=== PATIENT | female | born 1980 ===

== ENCOUNTER 2016-12-31 17:45 | Inpatient (IN) | payer OTHER, SELFPAY ==
[2016-12-31 17:45] VITALS: BMI 28.9
[2016-12-31] MEDS ORDERED: Sodium Chloride 0.9% 1,000 ML IV STA (17:58)
[2016-12-31 18:36] LABS: VENOUS BLOOD GAS BASE EXCESS 1.3 mmol/L (0.0-2.0); VENOUS BLOOD GAS PCO2 40 mmHg (40-60); VENOUS BLOOD PH 7.42 (7.32-7.43)
[2016-12-31 18:42] LABS: BASO % 0.3 % (0.0-2.0); EOS % 0.3 % (0.0-4.0); HEMATOCRIT 31.6 % (34.0-47.0); LYMPH # 0.5 K/uL (1.0-4.3); MEAN CELL VOLUME 71.6 fl (81.0-99.0); MEAN CORPUSCULAR HGB CONC 32.1 g/dL (33.0-37.0); MEAN PLATELET VOLUME 8.6 fl (7.2-11.7); MONO # 0.2 K/uL (0.0-0.8); MONO % 2.9 % (0.0-10.0); NEUT % 89.5 % (50.0-75.0); NRBC % 0.1 % (0.0-0.0); PLATELET COUNT 180 K/uL (130-400); RED CELL DISTRIBUTION WIDTH 17.3 % (11.5-14.5); WHITE BLOOD COUNT 7.8 K/uL (4.8-10.8)
[2016-12-31 18:42] LABS: RBC URINE 48 /hpf (0-3); URINE BILIRUBIN NEGATIVE (NEGATIVE); URINE BLOOD MODERATE (NEGATIVE); URINE COLOR YELLOW (YELLOW); URINE GLUCOSE (UA) NEG (Normal); URINE KETONE NEGATIVE (NEGATIVE); URINE LEUKOCYTE ESTERASE LARGE Leu/uL (Negative); URINE PROTEIN 100 mg/dL (NEGATIVE); WBC URINE 162 /hpf (0-5)
[2016-12-31 18:45] LABS: URINE BACTERIA MOD (<OCC)
--- NOTE | 2016-12-31 18:46 | ED PDOC ---
HPI: Back Time Seen by Provider: 12/31/16 17:57 Chief Complaint (Nursing): Back Pain Chief Complaint (Provider): Back Pain History Per: Patient History/Exam Limitations: no limitations Onset/Duration Of Symptoms: Days (x2) Current Symptoms Are (Timing): Still Present Additional Complaint(s): Calista Lagunas is a 36 year old female who presents to the emergency department with a complaint of constant and worsening left-sided back pain radiating to left leg associated with fever, loss of appetite, pelvic pain, yellow vaginal discharge, urine frequency and nausea ongoing for 2 days. Denied dysuria, hematuria, diarrhea or constipation. Patient stated her fever began yesterday and took Tylenol last at 1300 today. PMD: none provided Past Medical History Reviewed: Historical Data, Nursing Documentation, Vital Signs Vital Signs: Last Vital Signs Temp 102.2 F H 12/31/16 17:48 Pulse 112 H 12/31/16 17:48 Resp 16 12/31/16 17:48 BP 139/76 12/31/16 17:48 Pulse Ox 100 12/31/16 17:48 - Medical History PMH: Anemia - Family History Family History: States: Unknown Family Hx - Social History Current smoker - smoking cessation education provided: No Alcohol: None Drugs: Denies - Allergies Allergies/Adverse Reactions: Allergies Allergy/AdvReac Type Severity Reaction Status Date / Time No Known Allergies Allergy Verified 12/31/16 17:48 Review of Systems ROS Statement: Except As Marked, All Systems Reviewed And Found Negative Constitutional: Positive for: Fever Gastrointestinal: Positive for: Nausea, Other (loss of appetite). Negative for : Diarrhea, Constipation Genitourinary Female: Positive for: Frequency, Vaginal Discharge (yellow), Pelvic Pain. Negative for: Dysuria, Hematuria Musculoskeletal: Positive for: Back Pain (left-sided), Leg Pain (left) Physical Exam - Reviewed Nursing Documentation Reviewed: Yes Vital Signs Reviewed: Yes - Physical Exam Appears: Positive for: Uncomfortable, In Acute Distress Head Exam: Positive for: ATRAUMATIC, NORMOCEPHALIC Skin: Positive for: Warm, Dry Eye Exam: Positive for: EOMI, PERRL ENT: Negative for: Pharyngeal Erythema, Tonsillar Exudate Neck: Positive for: Painless ROM, Supple Cardiovascular/Chest: Positive for: Chest Non Tender, Tachycardia Respiratory: Positive for: Normal Breath Sounds. Negative for: Wheezing, Respiratory Distress Gastrointestinal/Abdominal: Positive for: Soft, Tenderness (suprapubic). Negative for: Mass, Distended, Guarding, Rebound Pelvic Exam: Positive for: External Exam Normal, Speculum Exam Normal, Tender Uterus. Negative for: Discharge Back: Positive for: L CVA Tenderness. Negative for: R CVA Tenderness, Vertebral Tenderness, Decreased ROM Extremity: Positive for: Normal ROM. Negative for: Pedal Edema, Deformity Lymphatic: Negative for: Adenopathy Neurologic/Psych: Positive for: Alert. Negative for: Motor/Sensory Deficits - Laboratory Results Result Diagrams: 12/31/16 18:20 12/31/16 18:25 - ECG O2 Sat by Pulse Oximetry: 100 (RA) Pulse Ox Interpretation: Normal Medical Decision Making Medical Decision Making: Initial Impression: Febrile illness; left flank pain Differential diagnosis: Pyelonephritis; pelvic inflammatory disease; sepsis; colitis Initial Plan: * VBG * CT ABD/pelvis without contrast * BNP * CMP * Magnesium * Phosphorous * Troponin I * Urine dipstick * Urine * CBC * ESR * PTT * PT * Chlamydia/GC * Tylenol 975mg PO * Toradol 15mg IV * NS 1,000ml IV per 2,000mls/hr * Blood culture * Genital culture * Urine culture * Urinalysis Time: 1819 --UA: large amount of blood and small leukocytes noted. Protein: 100. Negative for . Time: 2100 --CT ABD/pelvis FINDINGS: LIMITATIONS: Mild streak/motion artifact. LOWER THORAX: Dense septum sign noted in the heart, a finding which can be seen with anemia. ABDOMEN: LIVER: No acute abnormality of the liver identified. GALLBLADDER AND BILE DUCTS: No CT evidence of acute cholecystitis. No evidence of significant biliary ductal dilatation. PANCREAS: No CT evidence of acute pancreatitis. SPLEEN: No acute abnormality of the spleen identified. ADRENALS: No acute abnormality of the adrenal glands identified. KIDNEYS AND URETERS: Mild left hydroureteronephrosis, urothelial thickening, and perinephric stranding. No causative obstructing stone is seen. Tiny, nonobstructing left renal stones. No acute abnormality of the right kidney identified. STOMACH AND BOWEL: No acute abnormality of the stomach, small bowel or colon identified. No evidence of bowel obstruction. APPENDIX: Normal appendix is not seen, however, there are no significant inflammatory changes visualized in the expected location of the appendix to suggest appendicitis. Recommend clinical correlation. PELVIS: BLADDER: Mild thickening of the bladder wall. REPRODUCTIVE:No acute abnormality of the reproductive organs is seen. No acute abnormality of the uterus identified. No evidence of large adnexal masses. ABDOMEN and PELVIS: INTRAPERITONEAL SPACE: Small amount of free fluid in the cul-de-sac. This is most likely physiologic in nature. No evidence of free air. BONES/JOINTS: No acute fractures or other acute bony abnormality noted. SOFT TISSUES: No acute abnormality of the visualized soft tissues is seen. VASCULATURE: Prominent vessels are seen the posterior pelvis, in the presacral region, which appear to drain into iliac spine laterally. Findings suggest collateral vessel formation, secondary to some type of underlying chronic venous occlusion more proximally. The IVC appears normal in size on this unenhanced exam. No evidence of abdominal aortic aneurysm. LYMPH NODES: No evidence of diffuse lymphadenopathy. IMPRESSION: - Mild left hydroureteronephrosis, urothelial thickening, and perinephric stranding. No causative obstructing stone is seen. Findings could be due to a recently passed stone. A left-sided urinary tract infection could also have this appearance. Recommend clinical correlation. - Mild bladder wall thickening. This is a nonspecific finding, but can be seen with cystitis. Recommend clinical correlation. - Tiny nonobstructing left renal stones. - Findings which can be seen with anemia. Recommend clinical correlation. - See above for remaining findings. On reeval pt continues to have pain LEFT flank. DW pt findings and plan of care. Elevated HR and temp c/w sepsis, but pt with normal lactic acid so not in septic shock. Pt needs hospitalization to continue observation of improvement or worsening sepsis on IV antibiotics. Scribe Attestation: Documented by Jackie Guerin, acting as a scribe for Anita Wang MD. Provider Scribe Attestation: All medical record entries made by the Scribe were at my direction and personally dictated by me. I have reviewed the chart and agree that the record accurately reflects my personal performance of the history, physical exam, medical decision making, and the department course for this patient. I have also personally directed, reviewed, and agree with the discharge instructions and disposition. Disposition - Clinical Impression Clinical Impression: Pyelonephritis, Sepsis Discussed With : Monster Wiley Counseled Patient/Family Regarding: Studies Performed, Diagnosis - Disposition Disposition Time: 21:00 Condition: GUARDED - Pt Status Changed To: Hospital Disposition Of: Observation - POA Present On Arrival: None
[2016-12-31 18:58] LABS: PARTIAL THROMBOPLASTIN TIME 31.8 Seconds (25.6-37.1)
[2016-12-31 19:11] LABS: ALB/GLOB RATIO 1.3 (1.0-2.1); ALKALINE PHOSPHATASE 150 U/L (38-126); ALT/SGPT 99 U/L (9-52); AST/SGOT 183 U/L (14-36); BILIRUBIN,TOTAL 1.8 mg/dl (0.2-1.3); BLOOD UREA NITROGEN 8 mg/dl (7-17); CALCIUM 8.7 mg/dL (8.4-10.2); CARBON DIOXIDE 23 mmol/L (22-30); CHLORIDE 100 mmol/L (98-107); GFR AFRICAN-AMERICAN > 60; GLUCOSE,RANDOM 114 mg/dL (65-105); MAGNESIUM 1.8 MG/DL (1.6-2.3); PHOSPHOROUS 2.4 mg/dl (2.5-4.5); SODIUM 135 mmol/l (132-148); TOTAL PROTEIN 7.6 G/DL (6.3-8.2)
[2016-12-31] MEDS ORDERED: cefTRIAXone (Rocephin) 1 gm Inj ONE (19:12)
[2016-12-31 19:18] LABS: POTASSIUM 3.2 MMOL/L (3.6-5.0)
[2016-12-31] MEDS ORDERED: K-Lyte 25meq EF Tab PO ONE ×2 (19:25→19:57)
[2016-12-31 19:38] LABS: NEUTROPHIL 89 % (42-75); TOTAL CELLS COUNTED 100
--- NOTE | 2016-12-31 21:01 | CT ---
EXAM: CT Abdomen and Pelvis Without Intravenous Contrast EXAM DATE/TIME: 12/31/2016 6:26 PM CLINICAL HISTORY: 36 years old, female; Pain; Abdominal pain; Localized; Left; Additional info: Left flank pain TECHNIQUE: Axial computed tomography images of the abdomen and pelvis without intravenous contrast. All CT scans at this facility use one or more dose reduction techniques, viz.: automated exposure control; ma/kV adjustment per patient size (including targeted exams where dose is matched to indication; i.e. head); or iterative reconstruction technique. Coronal and sagittal reformatted images were created and reviewed. COMPARISON: No relevant prior studies available. FINDINGS: LIMITATIONS: Mild streak/motion artifact. LOWER THORAX: Dense septum sign noted in the heart, a finding which can be seen with anemia. ABDOMEN: LIVER: No acute abnormality of the liver identified. GALLBLADDER AND BILE DUCTS: No CT evidence of acute cholecystitis. No evidence of significant biliary ductal dilatation. PANCREAS: No CT evidence of acute pancreatitis. SPLEEN: No acute abnormality of the spleen identified. ADRENALS: No acute abnormality of the adrenal glands identified. KIDNEYS AND URETERS: Mild left hydroureteronephrosis, urothelial thickening, and perinephric stranding. No causative obstructing stone is seen. Tiny, nonobstructing left renal stones. No acute abnormality of the right kidney identified. STOMACH AND BOWEL: No acute abnormality of the stomach, small bowel or colon identified. No evidence of bowel obstruction. APPENDIX: Normal appendix is not seen, however, there are no significant inflammatory changes visualized in the expected location of the appendix to suggest appendicitis. Recommend clinical correlation. PELVIS: BLADDER: Mild thickening of the bladder wall. REPRODUCTIVE:No acute abnormality of the reproductive organs is seen. No acute abnormality of the uterus identified. No evidence of large adnexal masses. ABDOMEN and PELVIS: INTRAPERITONEAL SPACE: Small amount of free fluid in the cul-de-sac. This is most likely physiologic in nature. No evidence of free air. BONES/JOINTS: No acute fractures or other acute bony abnormality noted. SOFT TISSUES: No acute abnormality of the visualized soft tissues is seen. VASCULATURE: Prominent vessels are seen the posterior pelvis, in the presacral region, which appear to drain into iliac spine laterally. Findings suggest collateral vessel formation, secondary to some type of underlying chronic venous occlusion more proximally. The IVC appears normal in size on this unenhanced exam. No evidence of abdominal aortic aneurysm. LYMPH NODES: No evidence of diffuse lymphadenopathy. IMPRESSION: - Mild left hydroureteronephrosis, urothelial thickening, and perinephric stranding. No causative obstructing stone is seen. Findings could be due to a recently passed stone. A left-sided urinary tract infection could also have this appearance. Recommend clinical correlation. - Mild bladder wall thickening. This is a nonspecific finding, but can be seen with cystitis. Recommend clinical correlation. - Tiny nonobstructing left renal stones. - Findings which can be seen with anemia. Recommend clinical correlation. - See above for remaining findings.
[2016-12-31 21:26] LABS: ERYTHROCYTE SEDIMENTATION RATE 35 mm/hr (0-20)
--- NOTE | 2016-12-31 21:56 | CP.PCM.HP ---
History of Present Illness - History of Present Illness History of Present Illness: CC: Back pain L>R History largely via ; is largely Lao speaking. HPI: This is a 36 y/o female with no chronic problems who comes in with worsening L sided back/flank pain. Pain radiates to L leg and is associated with f/n/v/anorexia. She has also had some pelvic pain/discharge. She has had urinary frequency. Symptoms have been ongoing for 2+ days. Denies dysuria or hematuria. Tylenol has helped with some of her symptoms. ROS: 14 systems reviewed, negative other than HPI MHx: Anemia SHx: C section in the past Allergies: NKDA Medications: as per med rec Family Hx: reviewed, no relevant findings Social Hx: Lives with family, no significant EtOH or tobacco Present on Admission - Present on Admission Any Indicators Present on Admission: No Past Patient History - Past Social History Alcohol: None Drugs: Denies - HEMATOLOGICAL/ONCOLOGICAL Hx Anemia: Yes - PSYCHIATRIC Hx Substance Use: No - SURGICAL HISTORY Hx Tubal Ligation: Yes (tubectomy) Meds Allergies/Adverse Reactions: Allergies Allergy/AdvReac Type Severity Reaction Status Date / Time No Known Allergies Allergy Verified 12/31/16 17:48 Physical Exam - Constitutional Appears: No Acute Distress - Head Exam Head Exam: ATRAUMATIC, NORMOCEPHALIC - Eye Exam Eye Exam: EOMI, PERRL - ENT Exam ENT Exam: Mucous Membranes Dry - Neck Exam Neck exam: Positive for: Full Rom - Respiratory Exam Respiratory Exam: Clear to Auscultation Bilateral, NORMAL BREATHING PATTERN - Cardiovascular Exam Cardiovascular Exam: REGULAR RHYTHM, +S1, +S2 - GI/Abdominal Exam GI & Abdominal Exam: Normal Bowel Sounds, Soft, Tenderness - Extremities Exam Extremities exam: Positive for: full ROM, normal inspection, pedal edema - Neurological Exam Neurological exam: Alert, CN II-XII Intact, Oriented x3 - Psychiatric Exam Psychiatric exam: Normal Affect, Normal Mood - Skin Skin Exam: Dry, Warm Results - Vital Signs Recent Vital Signs: Last Vital Signs Temp 102.2 F H 12/31/16 17:48 Pulse 112 H 12/31/16 17:48 Resp 16 12/31/16 17:48 BP 139/76 12/31/16 17:48 Pulse Ox 100 12/31/16 21:38 - Labs Result Diagrams: 12/31/16 18:20 12/31/16 18:25 Labs: Laboratory Results - last 24 hr 12/31/16 12/31/16 12/31/16 18:20 18:25 18:25 WBC 7.8 RBC 4.41 Hgb 10.2 L Hct 31.6 L MCV 71.6 L D MCH 23.0 L MCHC 32.1 L RDW 17.3 H Plt Count 180 MPV 8.6 Neut % (Auto) 89.5 H Lymph % (Auto) 7.0 L [place] % (Auto) 2.9 Eos % (Auto) 0.3 Baso % (Auto) 0.3 Neut # 7.0 Lymph # 0.5 L [place] # 0.2 Eos # 0.0 Baso # 0.0 Neutrophils % (Manual) 89 H Band Neutrophils % 3 H Lymphocytes % (Manual) 5 L Monocytes % (Manual) 3 Platelet Estimate Normal Hypochromasia (manual) Moderate Poikilocytosis (manual Slight Anisocytosis (manual) Moderate Microcytosis (manual) Moderate ESR 35 H PT 13.4 H INR 1.3 H APTT 31.8 pO2 VBG pH VBG pCO2 VBG HCO3 VBG Total CO2 VBG O2 Sat (Calc) VBG Base Excess VBG Potassium Glucose Lactate FiO2 Sodium 135 Potassium 3.2 L Chloride 100 Carbon Dioxide 23 Anion Gap 15 BUN 8 Creatinine 0.5 L Est GFR ( Amer) > 60 Est GFR (Non-Af Amer) > 60 Random Glucose 114 H Calcium 8.7 Phosphorus 2.4 L Magnesium 1.8 Total Bilirubin 1.8 H AST 183 H ALT 99 H Alkaline Phosphatase 150 H Troponin I < 0.0120 NT-Pro-B Natriuret Pep 87.0 Total Protein 7.6 Albumin 4.3 Globulin 3.3 Albumin/Globulin Ratio 1.3 Venous Blood Potassium Urine Color Urine Clarity Urine pH Ur Specific [place] Urine Protein Urine Glucose (UA) Urine Ketones Urine Blood Urine Nitrate Urine Bilirubin Urine Urobilinogen Ur Leukocyte Esterase Urine RBC (Auto) Urine Microscopic WBC Ur Squamous Epith Cells Urine Bacteria Urine Yeast (Budding) 12/31/16 12/31/16 18:26 18:33 WBC RBC Hgb Hct MCV MCH MCHC RDW Plt Count MPV Neut % (Auto) Lymph % (Auto) [place] % (Auto) Eos % (Auto) Baso % (Auto) Neut # Lymph # [place] # Eos # Baso # Neutrophils % (Manual) Band Neutrophils % Lymphocytes % (Manual) Monocytes % (Manual) Platelet Estimate Hypochromasia (manual) Poikilocytosis (manual Anisocytosis (manual) Microcytosis (manual) ESR PT INR APTT pO2 22 L VBG pH 7.42 VBG pCO2 40 VBG HCO3 24.3 VBG Total CO2 27.1 VBG O2 Sat (Calc) 59.4 VBG Base Excess 1.3 VBG Potassium 3.0 L Glucose 123 H Lactate 1.9 FiO2 21.0 Sodium 135.0 Potassium Chloride 104.0 Carbon Dioxide Anion Gap BUN Creatinine Est GFR ( Amer) Est GFR (Non-Af Amer) Random Glucose Calcium Phosphorus Magnesium Total Bilirubin AST ALT Alkaline Phosphatase Troponin I NT-Pro-B Natriuret Pep Total Protein Albumin Globulin Albumin/Globulin Ratio Venous Blood Potassium 3.0 L Urine Color Yellow Urine Clarity Cloudy Urine pH 7.0 Ur Specific [place] 1.014 Urine Protein 100 Urine Glucose (UA) Neg Urine Ketones Negative Urine Blood Moderate Urine Nitrate Negative Urine Bilirubin Negative Urine Urobilinogen 2.0 H Ur Leukocyte Esterase Large Urine RBC (Auto) 48 H Urine Microscopic WBC 162 H Ur Squamous Epith Cells 11 H Urine Bacteria Mod H Urine Yeast (Budding) Few H - Imaging and Cardiology CT scan - abdomen Status: Image reviewed by me (Perinephric stranding, ?hydronephrouterer on L), Report reviewed by me Assessment & Plan (1) Pyelonephritis Assessment and Plan: 36 y/o female with pyelonephritis and mild hypo-K. -Admit obs -Continue ceftriaxone IV -IVF -Tylenol for fever; pain mgmt per scale -SCDs for DVT PPx Status: Acute (2) DVT prophylaxis Status: Acute
[2016-12-31 22:05] LABS: VENOUS BLOOD GAS BASE EXCESS 0.6 mmol/L (0.0-2.0); VENOUS BLOOD GAS PCO2 36 mmHg (40-60); VENOUS BLOOD PH 7.44 (7.32-7.43)
[2016-12-31] MEDS: Sodium Chloride 0.9% 1,000 ML IV SCH (23:10)
[2017-01-01 08:38] LABS: HEMATOCRIT 28.3 % (34.0-47.0); MEAN CELL VOLUME 72.3 fl (81.0-99.0); MEAN CORPUSCULAR HEMOGLOBIN 22.8 pg (27.0-31.0); MEAN CORPUSCULAR HGB CONC 31.5 g/dL (33.0-37.0); RED CELL DISTRIBUTION WIDTH 17.4 % (11.5-14.5); WHITE BLOOD COUNT 8.5 K/uL (4.8-10.8)
--- NOTE | 2017-01-01 09:45 | CP.PCM.PN ---
Subjective - Date & Time of Evaluation Date of Evaluation: 01/01/17 Time of Evaluation: 15:00 - Subjective Subjective: Patient seen and examined bedside.Still complains of feeling weak with left side flank pain, febrile. Tmax 103.2 WBC 8.5 Hgb 8.9 Blood Cx positive for gram negative samantha Objective - Vital Signs/Intake and Output Vital Signs (last 24 hours): Temp Pulse Resp BP Pulse Ox 100.4 F H 109 H 18 99/55 L 98 01/01/17 07:28 01/01/17 07:28 01/01/17 07:28 01/01/17 07:28 01/01/17 07:28 - Medications Medications: Current Medications Acetaminophen (Tylenol 325mg Tab) 975 mg PO ONCE PRN PRN Reason: Fever >100.4 F Last Admin: 01/01/17 06:08 Dose: 975 mg Acetaminophen (Tylenol 325mg Tab) 650 mg PO Q6 PRN PRN Reason: Pain, Mild (1-3) Acetaminophen (Tylenol 325mg Tab) 650 mg PO Q6 PRN PRN Reason: Fever >100.4 F Sodium Chloride (Sodium Chloride 0.9%) 1,000 mls @ 100 mls/hr IV .Q10H GABY Stop: 01/01/17 17:44 Last Admin: 12/31/16 23:10 Dose: 100 mls/hr Ceftriaxone Sodium 1 gm/ (Sodium Chloride) 100 mls @ 100 mls/hr IVPB Q12 GABY Ketorolac Tromethamine (Toradol) 30 mg IVP Q6 PRN PRN Reason: Pain, moderate (4-7) Last Admin: 01/01/17 00:47 Dose: 30 mg Ondansetron HCl (Zofran Inj) 4 mg IVP Q6 PRN PRN Reason: Nausea/Vomiting - Labs Labs: 01/01/17 07:30 PT 13.4 Seconds (9.8-13.1) H 12/31/16 18:25 INR 1.3 (0.9-1.2) H 12/31/16 18:25 APTT 31.8 Seconds (25.6-37.1) 12/31/16 18:25 - Constitutional Appears: Well, Non-toxic, No Acute Distress - Head Exam Head Exam: ATRAUMATIC, NORMAL INSPECTION, NORMOCEPHALIC - Eye Exam Eye Exam: EOMI, Normal appearance, PERRL Pupil Exam: NORMAL ACCOMODATION - ENT Exam ENT Exam: Mucous Membranes Moist, Normal Exam - Neck Exam Neck Exam: Full ROM, Normal Inspection - Respiratory Exam Respiratory Exam: Clear to Ausculation Bilateral, NORMAL BREATHING PATTERN. absent: Rales, Rhonchi, Wheezes - Cardiovascular Exam Cardiovascular Exam: REGULAR RHYTHM, RRR, +S1, +S2. absent: JVD - GI/Abdominal Exam GI & Abdominal Exam: Soft, Normal Bowel Sounds. absent: Distended, Guarding, Tenderness, Rebound - Rectal Exam Rectal Exam: Deferred - Extremities Exam Extremities Exam: Full ROM, Normal Capillary Refill, Normal Inspection. absent : Calf Tenderness, Pedal Edema - Back Exam Back Exam: NORMAL INSPECTION - Neurological Exam Neurological Exam: Alert, Awake, CN II-XII Intact, Oriented x3 - Psychiatric Exam Psychiatric exam: Normal Affect, Normal Mood - Skin Skin Exam: Dry, Intact, Normal Color, Warm Assessment and Plan - Assessment and Plan (Free Text) Assessment: 36 y/o female with no chronic problems who comes in with worsening L sided back/ flank pain. Pain radiates to L leg and is associated with f/n/v/anorexia. She has also had some pelvic pain/discharge. She has had urinary frequency. Symptoms have been ongoing for 2+ days. Denies dysuria or hematuria. Patient febrile Tmax 103 with dirty cloudy urine and CT abdomen showing Mild left hydroureteronephrosis, urothelial thickening, and perinephric stranding. No obstructing stone is seen. Findings could be due to a recently passed stone. A left-sided urinary tract infection could also have this appearance. Mild bladder wall thickening. This is a nonspecific finding, but can be seen with cystitis. Tiny nonobstructing left renal stones. 1. Gram negative sepsis-- most likely secondary to pyelonephritis blood cx positive for gram negative samantha CT abdomen showed mild left hydrouretoeronephrosis and perinephric stranding Tmax 103.9 Urine cloudy with bacteria, LE, nitrates Follow up urine cx rresults Continue IV Rocephin Tyleonol and mnmotrin PRN for fever Continue IVF, pain management 2. Anemia Hgb 8.9 unclear etiology Check anemia work up Continue monitoring 3. Transaminitis and elevated Bilirubin Most likely related to acute infection CT abdomen showed no biliary tract pathology Continue monitoring LFT-s 4 DVT prophylaxis SCD
[2017-01-01] MEDS: Sodium Chloride 0.9% 1,000 ML IV SCH ×2 (12:00→20:14)
[2017-01-01 17:48] LABS: IRON 16 ug/dL (37-170)
[2017-01-02] MEDS: Sodium Chloride 0.9% 1,000 ML IV SCH ×2 (04:02→22:10)
[2017-01-02 06:18] LABS: MEAN CELL VOLUME 72.9 fl (81.0-99.0); MEAN CORPUSCULAR HEMOGLOBIN 22.4 pg (27.0-31.0); MEAN CORPUSCULAR HGB CONC 30.8 g/dL (33.0-37.0); RED CELL DISTRIBUTION WIDTH 18.4 % (11.5-14.5); WHITE BLOOD COUNT 3.8 K/uL (4.8-10.8)
[2017-01-02 06:26] LABS: ALB/GLOB RATIO 1.1 (1.0-2.1); ALKALINE PHOSPHATASE 194 U/L (38-126); ALT/SGPT 69 U/L (9-52); AST/SGOT 52 U/L (14-36); BILIRUBIN,TOTAL 1.3 mg/dl (0.2-1.3); BLOOD UREA NITROGEN 3 mg/dl (7-17); CARBON DIOXIDE 21 mmol/L (22-30); CHLORIDE 108 mmol/L (98-107); GFR AFRICAN-AMERICAN > 60; GLUCOSE,RANDOM 114 mg/dL (65-105); POTASSIUM 3.3 MMOL/L (3.6-5.0); SODIUM 139 mmol/l (132-148); TOTAL PROTEIN 6.2 G/DL (6.3-8.2)
--- NOTE | 2017-01-02 07:30 | CP.PCM.PN ---
Subjective - Date & Time of Evaluation Date of Evaluation: 01/02/17 Time of Evaluation: 08:30 - Subjective Subjective: Patient was seen and examined bedside. Feeling better today . With Tmax 101.6 yesterday @ 4 PM and no fever last 12 hours Denies any abdominal pr flank pain. voiding freely , denies dysuria WBC 3.8 Hgb 8.9 No acute issues overnight Objective - Vital Signs/Intake and Output Vital Signs (last 24 hours): Temp Pulse Resp BP Pulse Ox 98.8 F 85 19 108/68 99 01/02/17 00:27 01/02/17 00:27 01/02/17 00:27 01/02/17 00:27 01/02/17 00:27 Intake and Output: 01/02/17 01/02/17 06:59 18:59 Intake Total 1000 Balance 1000 - Medications Medications: Current Medications Acetaminophen (Tylenol 325mg Tab) 975 mg PO ONCE PRN PRN Reason: Fever >100.4 F Last Admin: 01/01/17 06:08 Dose: 975 mg Acetaminophen (Tylenol 325mg Tab) 650 mg PO Q6 PRN PRN Reason: Pain, Mild (1-3) Last Admin: 01/02/17 03:57 Dose: 650 mg Acetaminophen (Tylenol 325mg Tab) 650 mg PO Q6 PRN PRN Reason: Fever >100.4 F Ceftriaxone Sodium 1 gm/ (Sodium Chloride) 100 mls @ 100 mls/hr IVPB Q12 GABY Last Admin: 01/01/17 20:14 Dose: 100 mls/hr Sodium Chloride (Sodium Chloride 0.9%) 1,000 mls @ 100 mls/hr IV .Q10H [facility] Stop: 01/02/17 17:38 Last Admin: 01/02/17 04:02 Dose: Not Given Iron Sucrose 100 mg/ Sodium (Chloride) 105 mls @ 105 mls/hr IVPB DAILY [facility] Stop: 01/05/17 09:01 Ibuprofen (Motrin Tab) 600 mg PO Q6 PRN PRN Reason: Fever >100.4 F Last Admin: 01/01/17 16:33 Dose: 600 mg Ketorolac Tromethamine (Toradol) 30 mg IVP Q6 PRN PRN Reason: Pain, moderate (4-7) Last Admin: 01/01/17 00:47 Dose: 30 mg Ondansetron HCl (Zofran Inj) 4 mg IVP Q6 PRN PRN Reason: Nausea/Vomiting Last Admin: 01/02/17 01:05 Dose: 4 mg Potassium Chloride (Potassium Chloride Oral Soln) 20 meq PO DAILY GABY - Labs Labs: 01/02/17 05:30 01/02/17 05:30 PT 15.1 Seconds (9.8-13.1) H 01/02/17 05:30 INR 1.5 (0.9-1.2) H 01/02/17 05:30 APTT 31.8 Seconds (25.6-37.1) 12/31/16 18:25 - Constitutional Appears: Non-toxic, No Acute Distress - Head Exam Head Exam: ATRAUMATIC, NORMAL INSPECTION - Eye Exam Eye Exam: EOMI, Normal appearance, PERRL Pupil Exam: NORMAL ACCOMODATION - ENT Exam ENT Exam: Mucous Membranes Moist, Normal Exam - Neck Exam Neck Exam: Full ROM, Normal Inspection - Respiratory Exam Respiratory Exam: Clear to Ausculation Bilateral, NORMAL BREATHING PATTERN. absent: Rales, Rhonchi, Wheezes - Cardiovascular Exam Cardiovascular Exam: REGULAR RHYTHM, RRR, +S1, +S2. absent: JVD - GI/Abdominal Exam GI & Abdominal Exam: Soft, Normal Bowel Sounds. absent: Distended, Guarding, Tenderness, Rebound - Rectal Exam Rectal Exam: Deferred - Extremities Exam Extremities Exam: Full ROM, Normal Capillary Refill, Normal Inspection. absent : Calf Tenderness, Pedal Edema - Back Exam Back Exam: NORMAL INSPECTION - Neurological Exam Neurological Exam: Alert, Awake, CN II-XII Intact, Oriented x3 - Psychiatric Exam Psychiatric exam: Normal Affect, Normal Mood - Skin Skin Exam: Dry, Intact, Normal Color, Warm Assessment and Plan - Assessment and Plan (Free Text) Assessment: 36 y/o female with no chronic problems who comes in with worsening L sided back/ flank pain. Pain radiates to L leg and is associated with f/n/v/anorexia. She has also had some pelvic pain/discharge. She has had urinary frequency. Symptoms have been ongoing for 2+ days. Denies dysuria or hematuria. Patient febrile Tmax 103 with dirty cloudy urine and CT abdomen showing Mild left hydroureteronephrosis, urothelial thickening, and perinephric stranding. No obstructing stone is seen. Findings could be due to a recently passed stone. A left-sided urinary tract infection could also have this appearance. Mild bladder wall thickening. This is a nonspecific finding, but can be seen with cystitis. Tiny nonobstructing left renal stones. 1. Gram negative sepsis-- most likely secondary to pyelonephritis blood cx positive for gram negative samantha CT abdomen showed mild left hydrouretoeronephrosis and perinephric stranding Tmax 103.9 on admission ,Urine cloudy with bacteria, LE, nitrates Follow up urine cx rresults Afebrile last 12 hours Continue IV Rocephin Tylenol and motrin PRN for fever Continue IVF, pain management G&C - negative 2. Anemia Hgb 8.9 anemia work up showed iron deficiency anemia Will start enofer IV Continue monitoring 3. Transaminitis and elevated Bilirubin Most likely related to acute infection-- improving CT abdomen showed no biliary tract pathology Continue monitoring LFT-s 4. Coagulopathy unclear etiology INR 1.5 monitor for now 5.Hypokalemia replace with KCl Po 6. DVT prophylaxis SCD
[2017-01-02] MEDS: Potassium Chloride 20 mEq/15 ml LIQ UD PO SCH (16:00)
--- NOTE | 2017-01-02 17:22 | CARD ---
APPROVED REPORT EXAM: Two-dimensional and M-mode echocardiogram with Doppler and color Doppler. Other Information Quality : GoodRhythm : NSR INDICATION Subacute bacterial endocarditis 2D DIMENSIONS IVSd0.92 (0.7-1.1cm)LVDd4.54 (3.9-5.9cm) LVOT Diameter1.75 (1.8-2.4cm)PWd0.86 (0.7-1.1cm) IVSs1.27 (0.8-1.2cm)LVDs2.97 (2.5-4.0cm) FS (%) 34.6 %PWs1.21 (0.8-1.2cm) M-Mode DIMENSIONS Left Atrium (MM)3.32 (2.5-4.0cm)IVSd0.95 (0.7-1.1cm) Aortic Root2.34 (2.2-3.7cm)LVDd4.81 (4.0-5.6cm) Aortic Cusp Exc.1.44 (1.5-2.0cm)PWd0.85 (0.7-1.1cm) IVSs1.34 cmFS (%) 39 % LVDs2.96 (2.0-3.8cm)PWs1.31 cm Mitral Valve MV E Tlcjdgzn34.4cm/sMV DECEL [id number] A Yobxpchh91.1cm/s MV CUH55cyA/A ratio2.4MVA (PHT)2.94cm2 TDI Lateral E' Peak V15.56cm/sMedial E' Peak V11.65cm/sE/Lateral E'5.8 E/Medial E'7.8 Pulmonary Valve PV Peak Gjzcyfkt107.4cm/s Tricuspid Valve TR Peak Ixtgejvl099rk/sRAP [id number] Peak Gr.26mmHg [id number] LEFT VENTRICLE The left ventricle is normal size. There is normal left ventricular wall thickness. Left ventricle systolic function is normal. The Ejection Fraction is 60-65%. There is normal LV segmental wall motion. The left ventricular diastolic function is normal. RIGHT VENTRICLE The right ventricle is normal size. There is normal right ventricular wall thickness. The right ventricular systolic function is normal. ATRIA The left atrium size is normal. The right atrium size is normal. AORTIC VALVE The aortic valve is normal in structure and function. No aortic regurgitation is present. There is no aortic valvular stenosis. There is no aortic valvular vegetation. MITRAL VALVE The mitral valve is normal in structure. No vegetations seen There is no evidence of mitral valve prolapse. There is no mitral valve stenosis. Mitral regurgitation is mild. TRICUSPID VALVE The tricuspid valve is normal in structure. There is mild tricuspid regurgitation. Right ventricular systolic pressure is estimated at 37 mmHg. There is mild pulmonary hypertension. There is no tricuspid valve vegetation. PULMONIC VALVE The pulmonary valve is normal in structure and function. No vegetations seen. There is no pulmonic valvular regurgitation. GREAT VESSELS The aortic root is normal in size. The IVC is normal in size and collapses >50% with inspiration. PERICARDIAL EFFUSION The pericardium appears normal. <Conclusion> The left ventricle is normal size. There is normal left ventricular wall thickness. There is normal LV segmental wall motion. Left ventricle systolic function is normal. The Ejection Fraction is 60-65%. The left ventricular diastolic function is normal. No valvular vegetations seen on this TTE.
[2017-01-03 07:25] LABS: HEMATOCRIT 26.8 % (34.0-47.0); MEAN CORPUSCULAR HEMOGLOBIN 22.6 pg (27.0-31.0); MEAN CORPUSCULAR HGB CONC 31.4 g/dL (33.0-37.0); RED CELL DISTRIBUTION WIDTH 18.1 % (11.5-14.5); WHITE BLOOD COUNT 2.6 K/uL (4.8-10.8)
[2017-01-03 07:56] LABS: BLOOD UREA NITROGEN 4 mg/dl (7-17); CALCIUM 8.3 mg/dL (8.4-10.2); CARBON DIOXIDE 23 mmol/L (22-30); CHLORIDE 105 mmol/L (98-107); GFR AFRICAN-AMERICAN > 60; GLUCOSE,RANDOM 96 mg/dL (65-105); POTASSIUM 3.6 MMOL/L (3.6-5.0); SODIUM 136 mmol/l (132-148)
[2017-01-03] MEDS: Potassium Chloride 20 mEq/15 ml LIQ UD PO SCH (09:03)
--- NOTE | 2017-01-03 09:29 | CP.PCM.PN ---
Subjective - Date & Time of Evaluation Date of Evaluation: 01/03/17 Time of Evaluation: 09:20 - Subjective Subjective: Patient was seen and examined bedside. Feeling better today . With Tmax 101.6 yesterday @ 4 PM and no fever last 12 hours Denies any abdominal or flank pain. voiding freely , denies dysuria WBC 2.6 Hgb 8.4 No acute issues overnight Objective - Vital Signs/Intake and Output Vital Signs (last 24 hours): Temp Pulse Resp BP Pulse Ox 98.7 F 103 H 20 110/71 99 01/03/17 08:23 01/03/17 08:23 01/03/17 08:23 01/03/17 08:23 01/03/17 08:23 - Medications Medications: Current Medications Acetaminophen (Tylenol 325mg Tab) 975 mg PO ONCE PRN PRN Reason: Fever >100.4 F Last Admin: 01/01/17 06:08 Dose: 975 mg Acetaminophen (Tylenol 325mg Tab) 650 mg PO Q6 PRN PRN Reason: Pain, Mild (1-3) Last Admin: 01/02/17 14:49 Dose: 650 mg Acetaminophen (Tylenol 325mg Tab) 650 mg PO Q6 PRN PRN Reason: Fever >100.4 F Ceftriaxone Sodium 1 gm/ (Sodium Chloride) 100 mls @ 100 mls/hr IVPB Q12 [facility] Last Admin: 01/03/17 09:03 Dose: 100 mls/hr Iron Sucrose 100 mg/ Sodium (Chloride) 105 mls @ 105 mls/hr IVPB DAILY [facility] Stop: 01/05/17 09:01 Last Admin: 01/02/17 14:50 Dose: 105 mls/hr Ibuprofen (Motrin Tab) 600 mg PO Q6 PRN PRN Reason: Fever >100.4 F Last Admin: 01/01/17 16:33 Dose: 600 mg Ketorolac Tromethamine (Toradol) 30 mg IVP Q6 PRN PRN Reason: Pain, moderate (4-7) Last Admin: 01/01/17 00:47 Dose: 30 mg Ondansetron HCl (Zofran Inj) 4 mg IVP Q6 PRN PRN Reason: Nausea/Vomiting Last Admin: 01/02/17 01:05 Dose: 4 mg Potassium Chloride (Potassium Chloride Oral Soln) 20 meq PO DAILY [facility] Last Admin: 01/03/17 09:03 Dose: 20 meq - Labs Labs: 01/03/17 06:30 01/03/17 06:30 PT 15.1 Seconds (9.8-13.1) H 01/02/17 05:30 INR 1.5 (0.9-1.2) H 01/02/17 05:30 APTT 31.8 Seconds (25.6-37.1) 12/31/16 18:25 - Constitutional Appears: Non-toxic, No Acute Distress - Head Exam Head Exam: ATRAUMATIC, NORMAL INSPECTION, NORMOCEPHALIC - Eye Exam Eye Exam: EOMI, Normal appearance, PERRL Pupil Exam: NORMAL ACCOMODATION - ENT Exam ENT Exam: Mucous Membranes Moist, Normal Exam - Neck Exam Neck Exam: Full ROM, Normal Inspection - Respiratory Exam Respiratory Exam: Clear to Ausculation Bilateral, NORMAL BREATHING PATTERN. absent: Rales, Rhonchi, Wheezes - Cardiovascular Exam Cardiovascular Exam: REGULAR RHYTHM, RRR, +S1, +S2. absent: JVD - GI/Abdominal Exam GI & Abdominal Exam: Soft, Normal Bowel Sounds. absent: Distended, Guarding, Tenderness, Rebound - Rectal Exam Rectal Exam: Deferred - Extremities Exam Extremities Exam: Full ROM, Normal Capillary Refill, Normal Inspection - Back Exam Back Exam: NORMAL INSPECTION. absent: CVA tenderness (L), CVA tenderness (R), vertebral tenderness - Neurological Exam Neurological Exam: Alert, Awake, CN II-XII Intact, Normal Gait, Oriented x3 - Psychiatric Exam Psychiatric exam: Normal Affect, Normal Mood - Skin Skin Exam: Dry, Intact, Normal Color, Warm Assessment and Plan - Assessment and Plan (Free Text) Assessment: 36 y/o female with no chronic problems who comes in with worsening L sided back/ flank pain. Pain radiates to L leg and is associated with f/n/v/anorexia. She has also had some pelvic pain/discharge. She has had urinary frequency. Symptoms have been ongoing for 2+ days. Denies dysuria or hematuria. Patient febrile Tmax 103 with dirty cloudy urine and CT abdomen showing Mild left hydroureteronephrosis, urothelial thickening, and perinephric stranding. No obstructing stone is seen. Findings could be due to a recently passed stone. A left-sided urinary tract infection could also have this appearance. Mild bladder wall thickening. This is a nonspecific finding, but can be seen with cystitis. Tiny non obstructing left renal stones. 1. Gram negative sepsis-- most likely secondary to pyelonephritis blood cx and urine cx positive for E.coli arias sensitive CT abdomen showed mild left hydrouretoeronephrosis and perinephric stranding Tmax 103.9 on admission ,Urine cloudy with bacteria, LE, nitrates Afebrile last 12 hours , WBC 2.6 K Continue IV Rocephin Tylenol and motrin PRN for fever Continue IVF, pain management G&C - negative 2. Anemia Hgb 8.4 anemia work up showed iron deficiency anemia started venofer IV Continue monitoring 3. Transaminitis and elevated Bilirubin Most likely related to acute infection-- improving CT abdomen showed no biliary tract pathology Continue monitoring LFT-s 4. Coagulopathy unclear etiology INR 1.5 monitor for now 5.Hypokalemia replace with KCl Po 6.Leukopenia most likely related with acute illness and sepsis 7. DVT prophylaxis SCD
[2017-01-03 16:28] VITALS: O2SAT 98
[2017-01-04 00:15] VITALS: RESP 20; TEMP 98.8
[2017-01-04 06:15] LABS: BASO % 0.4 % (0.0-2.0); EOS # 0.1 K/uL (0.0-0.7); EOS % 1.5 % (0.0-4.0); HEMATOCRIT 27.3 % (34.0-47.0); LYMPH # 1.6 K/uL (1.0-4.3); LYMPH % 32.7 % (20.0-40.0); MEAN CELL VOLUME 72.1 fl (81.0-99.0); MEAN CORPUSCULAR HEMOGLOBIN 22.4 pg (27.0-31.0); MEAN CORPUSCULAR HGB CONC 31.1 g/dL (33.0-37.0); MEAN PLATELET VOLUME 9.2 fl (7.2-11.7); MONO # 0.6 K/uL (0.0-0.8); MONO % 12.2 % (0.0-10.0); NEUT # 2.6 K/uL (1.8-7.0); NEUT % 53.2 % (50.0-75.0); NRBC % 0.1 % (0.0-0.0); RED CELL DISTRIBUTION WIDTH 17.9 % (11.5-14.5); WHITE BLOOD COUNT 4.8 K/uL (4.8-10.8)
[2017-01-04 06:27] LABS: ALB/GLOB RATIO 1.2 (1.0-2.1); ALKALINE PHOSPHATASE 231 U/L (38-126); ALT/SGPT 72 U/L (9-52); AST/SGOT 52 U/L (14-36); BILIRUBIN,TOTAL 0.3 mg/dl (0.2-1.3); BLOOD UREA NITROGEN 5 mg/dl (7-17); CALCIUM 8.7 mg/dL (8.4-10.2); CARBON DIOXIDE 24 mmol/L (22-30); CHLORIDE 106 mmol/L (98-107); GFR AFRICAN-AMERICAN > 60; GLUCOSE,RANDOM 99 mg/dL (65-105); POTASSIUM 3.9 MMOL/L (3.6-5.0); SODIUM 140 mmol/l (132-148); TOTAL PROTEIN 6.7 G/DL (6.3-8.2)
[2017-01-04 08:08] VITALS: BP 103/65; PULSE 73
[2017-01-04] MEDS ORDERED: Influenza Vaccine 18yr & older 0.5 ML/45 MCG SYR IM ONE (09:00)
[2017-01-04] MEDS: Potassium Chloride 20 mEq/15 ml LIQ UD PO SCH (09:26)
--- NOTE | 2017-01-04 10:41 | CP.PCM.DIS ---
Provider - Provider Date of Admission: 01/01/17 09:44 Attending physician: Monster Wiley MD Time Spent in preparation of Discharge (in minutes): 35 Diagnosis - Discharge Diagnosis (1) Escherichia coli sepsis Status: Acute (2) Pyelonephritis Status: Acute (3) Coagulopathy Status: Acute (4) Abnormal LFTs (liver function tests) Status: Acute (5) DVT prophylaxis Status: Acute Hospital Course - Lab Results Lab Results: Most Recent Lab Values WBC 4.8 K/uL (4.8-10.8) D 01/04/17 04:00 RBC 3.78 Mil/uL (3.80-5.20) L 01/04/17 04:00 Hgb 8.5 g/dL (12.0-16.0) L 01/04/17 04:00 Hct 27.3 % (34.0-47.0) L 01/04/17 04:00 MCV 72.1 fl (81.0-99.0) L 01/04/17 04:00 MCH 22.4 pg (27.0-31.0) L 01/04/17 04:00 MCHC 31.1 g/dL (33.0-37.0) L 01/04/17 04:00 RDW 17.9 % (11.5-14.5) H 01/04/17 04:00 Plt Count 194 K/uL (130-400) 01/04/17 04:00 MPV 9.2 fl (7.2-11.7) 01/04/17 04:00 Neut % (Auto) 53.2 % (50.0-75.0) 01/04/17 04:00 Lymph % (Auto) 32.7 % (20.0-40.0) 01/04/17 04:00 Thomas % (Auto) 12.2 % (0.0-10.0) H 01/04/17 04:00 Eos % (Auto) 1.5 % (0.0-4.0) 01/04/17 04:00 Baso % (Auto) 0.4 % (0.0-2.0) 01/04/17 04:00 Neut # 2.6 K/uL (1.8-7.0) 01/04/17 04:00 Lymph # 1.6 K/uL (1.0-4.3) 01/04/17 04:00 Thomas # 0.6 K/uL (0.0-0.8) 01/04/17 04:00 Eos # 0.1 K/uL (0.0-0.7) 01/04/17 04:00 Baso # 0.0 K/uL (0.0-0.2) 01/04/17 04:00 Neutrophils % (Manual) 89 % (42-75) H 12/31/16 18:20 Band Neutrophils % 3 % (0-2) H 12/31/16 18:20 Lymphocytes % (Manual) 5 % (20-50) L 12/31/16 18:20 Monocytes % (Manual) 3 % (0-10) 12/31/16 18:20 Platelet Estimate Normal (NORMAL) 12/31/16 18:20 Hypochromasia (manual) Moderate 12/31/16 18:20 Poikilocytosis (manual Slight 12/31/16 18:20 Anisocytosis (manual) Moderate 12/31/16 18:20 Microcytosis (manual) Moderate 12/31/16 18:20 ESR 35 mm/hr (0-20) H 12/31/16 18:20 Retic Count 2.0 % (0.5-1.5) H 01/01/17 17:09 Haptoglobin 248 mg/dL (43-212) H 01/01/17 17:09 PT 15.1 Seconds (9.8-13.1) H 01/02/17 05:30 INR 1.5 (0.9-1.2) H 01/02/17 05:30 APTT 31.8 Seconds (25.6-37.1) 12/31/16 18:25 pO2 37 mm/Hg (30-55) 12/31/16 22:01 VBG pH 7.44 (7.32-7.43) H 12/31/16 22:01 VBG pCO2 36 mmHg (40-60) L 12/31/16 22:01 VBG HCO3 24.7 mmol/L 12/31/16 22:01 VBG Total CO2 25.6 mmol/L (22-28) 12/31/16 22:01 VBG O2 Sat (Calc) 86.8 % (40-65) H 12/31/16 22:01 VBG Base Excess 0.6 mmol/L (0.0-2.0) 12/31/16 22:01 VBG Potassium 3.8 mmol/L (3.6-5.2) 12/31/16 22:01 Sodium 136.0 mmol/L (132-148) 12/31/16 22:01 Chloride 107.0 mmol/L (98-107) 12/31/16 22:01 Glucose 116 mg/dL (65-105) H 12/31/16 22:01 Lactate 0.9 mmol/L (0.7-2.1) 12/31/16 22:01 FiO2 21.0 % 12/31/16 22:01 Sodium 140 mmol/l (132-148) 01/04/17 06:00 Potassium 3.9 MMOL/L (3.6-5.0) 01/04/17 06:00 Chloride 106 mmol/L (98-107) 01/04/17 06:00 Carbon Dioxide 24 mmol/L (22-30) 01/04/17 06:00 Anion Gap 13 (10-20) 01/04/17 06:00 BUN 5 mg/dl (7-17) L 01/04/17 06:00 Creatinine 0.5 mg/dL (0.7-1.2) L 01/04/17 06:00 Est GFR ( Amer) > 60 01/04/17 06:00 Est GFR (Non-Af Amer) > 60 01/04/17 06:00 Random Glucose 99 mg/dL (65-105) 01/04/17 06:00 Calcium 8.7 mg/dL (8.4-10.2) 01/04/17 06:00 Phosphorus 2.4 mg/dl (2.5-4.5) L 12/31/16 18:25 Magnesium 1.8 MG/DL (1.6-2.3) 12/31/16 18:25 Iron 16 ug/dL (37-170) L 01/01/17 17:09 TIBC 382 ug/dL (250-450) 01/01/17 17:09 % Saturation 4 % (20-55) L 01/01/17 17:09 Transferrin 302.48 mg/dL (206-381) 01/01/17 17:09 Ferritin 60.2 ng/mL 01/01/17 17:09 Total Bilirubin 0.3 mg/dl (0.2-1.3) 01/04/17 06:00 AST 52 U/L (14-36) H 01/04/17 06:00 ALT 72 U/L (9-52) H 01/04/17 06:00 Alkaline Phosphatase 231 U/L (38-126) H 01/04/17 06:00 Lactate Dehydrogenase 494 U/L (313-618) 01/01/17 17:09 Troponin I < 0.0120 ng/mL (0.00-0.120) 12/31/16 18:25 NT-Pro-B Natriuret Pep 87.0 pg/ml (0-450) 12/31/16 18:25 Total Protein 6.7 G/DL (6.3-8.2) 01/04/17 06:00 Albumin 3.7 g/dL (3.5-5.0) 01/04/17 06:00 Globulin 3.1 gm/dL (2.2-3.9) 01/04/17 06:00 Albumin/Globulin Ratio 1.2 (1.0-2.1) 01/04/17 06:00 Vitamin B12 350 pg/mL (239-931) 01/01/17 17:09 Folate 6.0 ng/mL 01/01/17 17:09 Venous Blood Potassium 3.8 mmol/L (3.6-5.2) 12/31/16 22:01 Urine Color Yellow (YELLOW) 12/31/16 18:26 Urine Clarity Cloudy (Clear) 12/31/16 18:26 Urine pH 7.0 (5.0-8.0) 12/31/16 18:26 Ur Specific [place] 1.014 (1.003-1.030) 12/31/16 18:26 Urine Protein 100 mg/dL (NEGATIVE) 12/31/16 18:26 Urine Glucose (UA) Neg mg/dL (Normal) 12/31/16 18:26 Urine Ketones Negative mg/dL (NEGATIVE) 12/31/16 18:26 Urine Blood Moderate (NEGATIVE) 12/31/16 18:26 Urine Nitrate Negative (NEGATIVE) 12/31/16 18:26 Urine Bilirubin Negative (NEGATIVE) 12/31/16 18:26 Urine Urobilinogen 2.0 mg/dL (0.2-1.0) H 12/31/16 18:26 Ur Leukocyte Esterase Large [place]uneet/uL (Negative) 12/31/16 18:26 Urine RBC (Auto) 48 /hpf (0-3) H 12/31/16 18:26 Urine Microscopic WBC 162 /hpf (0-5) H 12/31/16 18:26 Ur Squamous Epith Cells 11 /hpf (0-5) H 12/31/16 18:26 Urine Bacteria Mod (<OCC) H 12/31/16 18:26 Urine Yeast (Budding) Few /hpf (NEGATIVE) H 12/31/16 18:26 C.trachomatis RNA (TMA) Not detected (Not Detected) 12/31/16 18: N.gonorrhoeae RNA (TMA) Not detected (Not Detected) 12/31/16 18:26 - Hospital Course Hospital Course: 36 y/o female with no chronic problems comes in with L sided back/flank pain. Pain radiates to L leg and is associated with f/n/v/anorexia. She has also had some pelvic pain/discharge. She has had urinary frequency. Symptoms have been ongoing for 2+ days. Denies dysuria or hematuria. Patient febrile Tmax 103 with dirty cloudy urine and CT abdomen showing Mild left hydroureteronephrosis, urothelial thickening, and perinephric stranding. No obstructing stone is seen. Findings could be due to a recently passed stone. A left-sided urinary tract infection could also have this appearance. Mild bladder wall thickening. This is a nonspecific finding, but can be seen with cystitis. Tiny non obstructing left renal stones. Blood c/s : E coli, Urine c/s: E coli sensitive to Ceftriaxone. Pt's symptoms resolved - fever , and urinary sxs, flank pain resolved. 1. Sepsis sec to E colo-- secondary to pyelonephritis blood cx and urine cx positive for E.coli arias sensitive CT abdomen showed mild left hydrouretoeronephrosis and perinephric stranding Tmax 103.9 on admission ,Urine cloudy with bacteria, LE, nitrates now Afebrile Continue IV Rocephin Tylenol and motrin PRN for fever Continue IVF, pain management G&C - negative Pt to come back to [facility] daily to continue IV antibiotics x 8 more days 2. Anemia Hgb 8.4 anemia work up showed iron deficiency anemia started venofer IV Ferrous sulfate and Folic acid daily PO 3. Transaminitis and elevated Bilirubin Most likely related to acute infection-- improving CT abdomen showed no biliary tract pathology Continue monitoring LFT-s 4. Coagulopathy likely due to Sepsis, resolved INR 1.5 now 1.1 5.Hypokalemia replaced with KCl Po 6.Leukopenia most likely related with acute illness and sepsis 7. DVT prophylaxis SCD Discharge Exam - Head Exam Head Exam: ATRAUMATIC, NORMAL INSPECTION, NORMOCEPHALIC - Eye Exam Eye Exam: EOMI, Normal appearance, PERRL Pupil Exam: NORMAL ACCOMODATION - ENT Exam ENT Exam: Mucous Membranes Moist, Normal External Ear Exam - Neck Exam Neck exam: Full Rom - Respiratory Exam Respiratory Exam: NORMAL BREATHING PATTERN. absent: Rales, Rhonchi, Wheezes, Respiratory Distress - Cardiovascular Exam Cardiovascular Exam: REGULAR RHYTHM, +S1, +S2 - GI/Abdominal Exam GI & Abdominal Exam: Normal Bowel Sounds, Soft. absent: Tenderness - Extremities Exam Extremities exam: full ROM, normal capillary refill, normal inspection, pedal pulses present - Back Exam Back exam: FULL ROM. absent: CVA tenderness (L), CVA tenderness (R), paraspinal tenderness, vertebral tenderness - Neurological Exam Neurological exam: Alert, CN II-XII Intact, Normal Gait, Oriented x3, Reflexes Normal - Psychiatric Exam Psychiatric exam: Normal Affect, Normal Mood - Skin Skin Exam: Dry, Normal Color, Warm Discharge Plan - Discharge Medications Prescriptions: cefTRIAXone [Rocephin] 2 gm IV DAILY 9 Days Ferrous Sulfate 325 mg PO DAILY #30 tablet Folic Acid 1 mg PO DAILY #30 tab - Follow Up Plan Condition: GOOD Disposition: HOME/ ROUTINE Instructions: Acute Pyelonephritis (DC), Acute Pyelonephritis (GEN) Additional Instructions: Ceftriaxone 2 grams IV daily. Pt to come to the ED tomorrow for IV Infusion of Ceftriaxone then to SDS daily for 8 more days Appt clinic next wk [phone]. Referrals: [facility] [Outside]
== END 2017-01-04 15:32 | disposition home or self-care (01) | DRG 901 ==
LOC: H.ER 17:45 → H.ERHOLD 21:28 → H.MEDSURG1 23:00 → OBSVTOIN 01-01 09:44
PROVIDERS: ADMIT Internal Medicine; ATTEND Internal Medicine
DX: A41.51 Sepsis due to Escherichia coli [E. coli] (principal); N12 Tubulo-interstitial nephritis, not specified as acute or chronic; N13.30 Unspecified hydronephrosis; E87.6 Hypokalemia; D50.9 Iron deficiency anemia, unspecified; D68.9 Coagulation defect, unspecified; R79.89 Other specified abnormal findings of blood chemistry

== ENCOUNTER 2017-01-07 13:11 | Day surgery (SDC) | payer SELFPAY ==
[2017-01-07 13:34] VITALS: BMI 30.2
[2017-01-07 13:35] VITALS: RESP 18
[2017-01-07] MEDS ORDERED: Lidocaine 1% Inj (20ml) ONE (15:18)
[2017-01-07 15:37] VITALS: PULSE 68
--- NOTE | 2017-01-07 15:55 | CP.SDSHP ---
Same Day Surgery H & P - History Proposed Procedure: PICC placement Pre-Op Diagnosis: Renal infection - Allergies Allergies: Allergies No Known Allergies Allergy (Verified 12/31/16 17:48) - Physical Exam Vital Signs: Vital Signs 01/07/17 01/07/17 13:33 15:36 Temperature 98.8 F 97.4 F L Pulse Rate 70 68 Respiratory 18 18 Rate Blood Pressure 107/59 L 104/64 O2 Sat by Pulse 100 99 Oximetry Short Stay Discharge - Short Stay Discharge Admitting Diagnosis/Reason for Visit: ABX TREATMENT Disposition: HOME/ ROUTINE
--- NOTE | 2017-01-07 15:56 | PCM.SURG1 ---
Surgeon's Initial Post Op Note - Surgeon's Notes Surgeon: Sybil Import/Export Specialist: None Type of Anesthesia: Local Pre-Operative Diagnosis: Renal infection. Operative Findings: Patent right basilic vein Post-Operative Diagnosis: Renal infection. Operation Performed: Right basilic vein 4F SL 27cm PICC with tip at the RA/SVC junction. Specimen/Specimens Removed: None Estimated Blood Loss: EBL {In ML}: 1 Date of Surgery/Procedure: 01/07/17 Time of Surgery/Procedure: 15:45
[2017-01-07 16:33] VITALS: BP 119/71; TEMP 98; O2SAT 98
== END 2017-01-07 18:07 | disposition home or self-care (01) ==
LOC: H.OPSURG 13:11
PROVIDERS: ATTEND Student in an Organized Health Care Education/Training Program
DX: N15.9 Renal tubulo-interstitial disease, unspecified (principal)
CPT/HCPCS: 36569; 76937; 77001; A4310; C1751

== ENCOUNTER 2017-06-18 08:02 | Emergency (ER) | payer SELFPAY ==
[2017-06-18 08:02] VITALS: BMI 26.2
[2017-06-18 08:23] VITALS: BP 113/69; PULSE 84; RESP 16; TEMP 98.5; O2SAT 99
[2017-06-18] MEDS ORDERED: Sodium Chloride 0.9% 1,000 ML IV STA (08:35)
--- NOTE | 2017-06-18 08:45 | ED PDOC ---
HPI: Back Time Seen by Provider: 06/18/17 08:22 Chief Complaint (Nursing): Abdominal Pain Chief Complaint (Provider): Back Pain History Per: Patient History/Exam Limitations: no limitations Onset/Duration Of Symptoms: Days (x7) Current Symptoms Are (Timing): Still Present Additional Complaint(s): Calista Toledo is a 37 year old female that presents to the ED with a chief complaint of back pain that is now radiating to her abdomen that she has been experiencing for the past week. Patient reports that it is associated with dysuria, hematuria, hesitancy, and subjective fever, but denies any nausea, vomiting, or medical history. Past Medical History Reviewed: Historical Data, Nursing Documentation Vital Signs: Last Vital Signs Temp 98.5 F 06/18/17 08:20 Pulse 84 06/18/17 08:20 Resp 16 06/18/17 08:20 BP 113/69 06/18/17 08:20 Pulse Ox 99 06/18/17 08:20 - Medical History PMH: Anemia - Surgical History Surgical History: - Family History Family History: States: Unknown Family Hx - Social History Current smoker - smoking cessation education provided: No Alcohol: None - Home Medications Home Medications: Ambulatory Orders Medication Instructions Recorded Acetaminophen [Tylenol 325mg tab] 650 mg PO Q6 PRN tab 01/04/17 Ferrous Sulfate 325 mg PO DAILY #30 tablet 01/04/17 Folic Acid 1 mg PO DAILY #30 tab 01/04/17 Ibuprofen [Motrin Tab] 600 mg PO Q6 PRN tab 01/04/17 cefTRIAXone [Rocephin] 2 gm IV DAILY 9 Days vial 01/04/17 Nitrofurantoin Macrocrystals 100 mg PO BID #14 cap 06/18/17 [Macrobid] Phenazopyridine [Pyridium] 200 mg PO TID PRN #6 tab 06/18/17 - Allergies Allergies/Adverse Reactions: Allergies Allergy/AdvReac Type Severity Reaction Status Date / Time No Known Allergies Allergy Verified 12/31/16 17:48 Review of Systems ROS Statement: Except As Marked, All Systems Reviewed And Found Negative Constitutional: Positive for: Fever Gastrointestinal: Positive for: Abdominal Pain. Negative for: Nausea, Vomiting Genitourinary Female: Positive for: Dysuria, Hematuria, Other (hesitancy) Musculoskeletal: Positive for: Back Pain Physical Exam - Reviewed Nursing Documentation Reviewed: Yes Vital Signs Reviewed: Yes - Physical Exam Appears: Positive for: Non-toxic, No Acute Distress Head Exam: Positive for: ATRAUMATIC, NORMOCEPHALIC Skin: Positive for: Normal Color Eye Exam: Positive for: Normal appearance, EOMI, PERRL Cardiovascular/Chest: Positive for: Regular Rate, Rhythm. Negative for: Murmur Respiratory: Positive for: Normal Breath Sounds. Negative for: Wheezing Gastrointestinal/Abdominal: Positive for: Tenderness (left lower quadrant tenderness to palpation). Negative for: Normal Exam Back: Positive for: Normal Inspection. Negative for: L CVA Tenderness, R CVA Tenderness Extremity: Positive for: Normal ROM. Negative for: Deformity, Swelling Neurologic/Psych: Positive for: Alert, Oriented. Negative for: Motor/Sensory Deficits - Laboratory Results Result Diagrams: 06/18/17 08:55 06/18/17 08:55 - ECG O2 Sat by Pulse Oximetry: 99 (RA) Pulse Ox Interpretation: Normal Medical Decision Making Medical Decision Making: Impression: UTI vs. Pyelonephritis vs. Kidney stones Plan: * CMP * CBC * PTT * PT * Blood Culture * Urine Culture * Urine Dip * Urine Preg * Urinalysis * Morphine 2 mg IV * NaCl 1000 mLs at 1000 mLs/hr * Reevaluation Accession No. : [id number] Patient Name / ID : ROSALBA STEPHENS / [id number] Exam Date : 06/18/2017 13:41:40 ( Approved ) Study Comment : Sex / Age : F / 37Y Creator : Clyde Douglass MD Dictator : Clyde Douglass MD Order Entry Clerk : Automotive Welder : Clyde Doulgass MD Approver2 : Report Date : 06/18/2017 14:19:38 My Comment : PROCEDURE: CT Abdomen and Pelvis without intravenous contrast HISTORY: L flank pain COMPARISON: 12/31/2016 TECHNIQUE: Without contrast.. Contrast Dose: 0 Radiation dose: Total exam DLP = 589.27 mGy-cm. This CT exam was performed using one or more of the following dose reduction techniques: Automated exposure control, adjustment of the mA and/or kV according to patient size, and/or use of iterative reconstruction technique. FINDINGS: LOWER THORAX: Unremarkable. LIVER: Unremarkable. No gross lesion or ductal dilatation. GALLBLADDER AND BILE DUCTS: Unremarkable. PANCREAS: Unremarkable. No gross lesion or ductal dilatation. SPLEEN: Unremarkable. ADRENALS: Unremarkable. No mass. KIDNEYS AND URETERS: Unremarkable. No hydronephrosis. No solid mass. VASCULATURE: Unremarkable. No aortic aneurysm. BOWEL: Unremarkable. No obstruction. No gross mural thickening. APPENDIX: Unremarkable. Normal appendix. PERITONEUM: Unremarkable. No free fluid. No free air. LYMPH NODES: Unremarkable. No enlarged lymph nodes. BLADDER: Unremarkable. REPRODUCTIVE: Unremarkable uterus. Left adnexal cyst, likely ovarian, 3.3 cm diameter. Consider correlation with transvaginal pelvic ultrasound examination. BONES: No acute fracture. OTHER FINDINGS: None. IMPRESSION: 3.3 cm left adnexal cyst, likely ovarian. Consider correlation with transvaginal pelvic ultrasound examination. Otherwise unremarkable examination. 15:00 Pt feels better, resolution of pain. Scribe Attestation: Documented by Savannah Carmona, acting as a scribe for Mendy Aceves MD. Provider Scribe Attestation: All medical record entries made by the Scribe were at my direction and personally dictated by me. I have reviewed the chart and agree that the record accurately reflects my personal performance of the history, physical exam, medical decision making, and the department course for this patient. I have also personally directed, reviewed, and agree with the discharge instructions and disposition. Disposition - Clinical Impression Clinical Impression: UTI (urinary tract infection) - Disposition Referrals: [facility] [Outside] [facility] [Outside] Disposition: Routine/Home Disposition Time: 15:00 Condition: IMPROVED Prescriptions: Nitrofurantoin Macrocrystals [Macrobid] 100 mg PO BID #14 cap Phenazopyridine [Pyridium] 200 mg PO TID PRN #6 tab PRN Reason: Bladder Spasm Instructions: Urinary Tract Infections in Adults Forms: [facility] (Montenegrin) Print Language: ALBANIAN
[2017-06-18 09:09] LABS: BASO % 0.5 % (0.0-2.0); EOS % 0.3 % (0.0-4.0); HEMOGLOBIN 11.7 g/dL (12.0-16.0); LYMPH # 1.1 K/uL (1.0-4.3); LYMPH % 13.8 % (20.0-40.0); MEAN CELL VOLUME 86.9 fl (81.0-99.0); MEAN CORPUSCULAR HEMOGLOBIN 29.2 pg (27.0-31.0); MEAN CORPUSCULAR HGB CONC 33.6 g/dL (33.0-37.0); MONO # 0.8 K/uL (0.0-0.8); MONO % 9.6 % (0.0-10.0); NEUT # 6.1 K/uL (1.8-7.0); NEUT % 75.8 % (50.0-75.0); RED CELL DISTRIBUTION WIDTH 15.3 % (11.5-14.5); WHITE BLOOD COUNT 8.1 K/uL (4.8-10.8)
[2017-06-18 09:18] LABS: ALB/GLOB RATIO 1.3 (1.0-2.1); ALBUMIN 4.4 g/dL (3.5-5.0); ALT/SGPT 27 U/L (9-52); AST/SGOT 32 U/L (14-36); BLOOD UREA NITROGEN 5 mg/dl (7-17); GFR AFRICAN-AMERICAN > 60; GFR NON-AFRICAN AMERICAN > 60
[2017-06-18 09:25] LABS: INR 1.2 (0.9-1.2); PARTIAL THROMBOPLASTIN TIME 36.7 Seconds (25.6-37.1); PROTHROMBIN TIME 12.8 Seconds (9.8-13.1)
[2017-06-18 09:27] LABS: SQUAMOUS EPITHIAL 1 /hpf (0-5); URINE BACTERIA OCC (<OCC); URINE BILIRUBIN NEGATIVE (NEGATIVE); URINE BLOOD MODERATE (NEGATIVE); URINE CLARITY SLIGHTY-CLOUDY (Clear); URINE COLOR YELLOW (YELLOW); URINE GLUCOSE (UA) NEG (Normal); URINE LEUKOCYTE ESTERASE MOD Leu/uL (Negative); URINE NITRATE NEGATIVE (NEGATIVE); URINE PROTEIN NEGATIVE (NEGATIVE); URINE UROBILINOGEN 0.2-1.0 mg/dL (0.2-1.0)
[2017-06-18] MEDS ORDERED: cefTRIAXone (Rocephin) 1 gm Inj ONE (10:05)
--- NOTE | 2017-06-18 14:21 | CT ---
PROCEDURE: CT Abdomen and Pelvis without intravenous contrast HISTORY: L flank pain COMPARISON: 12/31/2016 TECHNIQUE: Without contrast.. Contrast Dose: 0 Radiation dose: Total exam DLP = 589.27 mGy-cm. This CT exam was performed using one or more of the following dose reduction techniques: Automated exposure control, adjustment of the mA and/or kV according to patient size, and/or use of iterative reconstruction technique. FINDINGS: LOWER THORAX: Unremarkable. LIVER: Unremarkable. No gross lesion or ductal dilatation. GALLBLADDER AND BILE DUCTS: Unremarkable. PANCREAS: Unremarkable. No gross lesion or ductal dilatation. SPLEEN: Unremarkable. ADRENALS: Unremarkable. No mass. KIDNEYS AND URETERS: Unremarkable. No hydronephrosis. No solid mass. VASCULATURE: Unremarkable. No aortic aneurysm. BOWEL: Unremarkable. No obstruction. No gross mural thickening. APPENDIX: Unremarkable. Normal appendix. PERITONEUM: Unremarkable. No free fluid. No free air. LYMPH NODES: Unremarkable. No enlarged lymph nodes. BLADDER: Unremarkable. REPRODUCTIVE: Unremarkable uterus. Left adnexal cyst, likely ovarian, 3.3 cm diameter. Consider correlation with transvaginal pelvic ultrasound examination. BONES: No acute fracture. OTHER FINDINGS: None. IMPRESSION: 3.3 cm left adnexal cyst, likely ovarian. Consider correlation with transvaginal pelvic ultrasound examination. Otherwise unremarkable examination.
== END 2017-06-18 18:33 | disposition home or self-care (01) ==
LOC: H.ER 08:02
DX: N39.0 Urinary tract infection, site not specified (principal)
CPT/HCPCS: 74176; 80053; 81003; 81025; 85025; 85610; 85730; 87040; 87086; 87181; 99283; J0696; J2270; J7040